=== PATIENT | male | born 1930 | race Caucasian/White ===

== ENCOUNTER 2021-03-20 17:52 | Emergency (ER) | payer SELFPAY ==
[2021-03-20] MEDS ORDERED: EPINEPHrine 1 MG/10 ML Abboject SYRINGE ONE (17:56)
[2021-03-20] MEDS ORDERED: Sodium Bicarb 50 MEQ/50 ML Abboject 8.4% SYRINGE ONE (17:56)
== END 2021-03-20 18:07 | disposition expired ==
LOC: ERS 17:52
DX: I46.9 Cardiac arrest, cause unspecified (principal); I10 Essential (primary) hypertension
CPT/HCPCS: 36416; 92950; 96374; J0171